=== PATIENT | female | born 1955 | race Native Hawaiian/Other Pacific Islander ===

== ENCOUNTER 2021-09-22 12:00 | Outpatient (RCR) | payer MEDICARE, SELFPAY ==
--- OUTSIDE RECORDS SUMMARY | 2021-08-25 09:04 | XMS_ITS | Continuity of Care Document ---
:1955 Author Support Name Relationship Address Phone LUIS Unavailable Unavailable Unavailable [facility] Team Providers Name Role Phone MIRIAM MUNGUIA Primary Care Physician JUDITH Hoffmann Attending Physician Chief Complaint and Reason for Visit Chief Complaint Dyspnea/Respdistress Reason for Visit [id number] Obstruction of biliary tract Elevated transaminase Right pleural effusion Dyspnea on exertion Diabetes Allergies, Adverse Reactions, Alerts Allergen Type Severity Reaction Last Verified Status Updated Iodinated Allergy Unknown HIVES AND August 18, Yes Active Diagnostic BREATHING 2021 Agents ISSUES Social History Smoking Status Status Start Date End Date Date of Observat ion Tobacco smoking August 25, 2020 7:10am consumption unknown (finding) Additional Data Assigned Sex Female Problems Active Problems Medical Problem Onset Date Status Pancreatic mass Active Pancreatic cancer Jul, 2020 Active Medications Medication Status Dose Units Route Directions Qty Days Start End Ins tructions Date Date Amlodipine Active 10 MG PO Daily Besylate Diphenhydrami Active 50 MG PO Once 2 July bring with you on day of CT scan and take with water after ne Hcl , you check in for test - 1 hour prior to scan 2021 1:58pm Lidocaine-Marily Active 1 CHAZ TOP As Needed 30 Novemb locaine er 2020 10:26am Lorazepam Active 0.5-1 MG PO Every 4 August PRN Hours as , Nausea/vomi ti needed for 2020 ng Nausea/Vomi 12:06pm ting Losartan Active 100 MG PO Daily 30 Potassium Metformin Hcl Active 1000 MG PO Twice A Day 60 Methylprednis Active 32 MG OR As Directed 2 July Take 1 tablet [address] scan, and take another olone 25th, tablet [address] scan. Monitor for high blood 2021 sugar. 1:58pm Metoprolol Active 25 MG PO Twice A Day 31 August Succinate , (Metoprolol 2020 Succinate Er) 8:32am 25 Mg TABCR Ondansetron Active 8 MG PO Every 8 Hcl Hours as needed Oxycodone Hcl Active 5 MG PO Every 6 Hours as needed Potassium Active 20 MEQ PO Daily 30 Novembe Chloride r 2020 10:40am Prochlorperaz Active 10 MG PO Every 4-6 31 August P RN ine Maleate Hours as 16th, Nause a/vomiti needed for 2020 ng Nausea/Vomi 12:06pm ting Simvastatin Active 20 MG PO Bedtime Diphenhydrami Discontin 0 PO Once 1 ua ne Hcl ued ry (Sleep) , (Benadryl) 25 2016 Mg TAB 9:33am Dronabinol Discontin 2.5 MG OR Twice A Day 60 31 October Sept em ued , nolvia 2020 03, 10:24am 2020 10:23a m Dulaglutide Discontin 1.5 MG SC (Trulicity) ued nolvia 1.5 Mg/0.5 Ml , INJ 2020 8:26am Exenatide Discontin 10 MCG SUBQ Twice A Day 1 ua INJECT 1 HOUR (Byetta) 10 ued ry PRIOR TO Mcg INJ , 2016 9:33am Furosemide Discontin 40 MG PO Daily August On old (Lasix) 40 Mg ued , , TAB 2020 2020 8:32am 9:54am Furosemide Discontin 40 MG PO Daily July (Lasix) 40 Mg ued , , TAB 2020 2020 9:17pm 8:32am Insulin Discontin 10 UNIT SUBQ Daily Degludec ued ry (Tresiba , Flextouch) 2016 100 Unit/Ml 9:33am INJ Insulin Discontin 36 UNIT SUBQ Daily September Glargine ued , (Lantus 2020 Solostar) 100 10:02a Unit/1 Ml m SOLN Ketoconazole Discontin 2 % EX June (Topical) ued , (Xolegel) 2 % 2021 GEL 11:15a m Loratadine Discontin 10 MG OR September (Claritin) 10 ued , Mg CAP 2020 10:02a m Losartan Discontin 100 MG PO Daily 31 August Potassium ued , (Cozaar) 100 2020 Mg TAB 8:32am Metformin Hcl Discontin 1000 MG PO Daily With Apr chelo ued Am Meal ry 2016 9:31am Metformin Hcl Discontin 500 MG PO Every Februa ued Evening ry 2016 9:31am Metformin Hcl Discontin 1000 MG PO Twice Daily 60 Fe brua (Glucophage) ued With Meals ry 1,000 Mg TAB 2016 9:31am Multiple Discontin 1 TAB PO August Vitamins W/ ued , Minerals 2020 (Multivitamin 8:32am Adults) 1 Tab TAB Multivitamins Discontin 1 TAB PO Daily September (Multivitamin ued , /Minerals) 2020 TAB 10:02a m Mupirocin Discontin 1 CHAZ TOP Three Times 23 August (Mupirocin ued A Day , Ointment) 2 % 2020 OIN 8:32am Naproxen Discontin 500 MG PO Twice A Day Februa (Naproxen Ec) ued ry 500 Mg TAB 2016 9:29am Nystatin Discontin 1 CHAZ TOP 2-3X/Day 30 September (Nystatin ued , Cream) 30 Gm 2020 CR 10:02a m Triamcinolone Discontin 1 CHAZ TOP Twice A Day 15 Ju ly Acetonide ued 8th, (Cream) 2020 10:02a m Medical Equipment Device Date Implanted Device Details PowerPort [employer] Implantable August 25, 2020 SHAUNNA: [id number] Port Issuing Agency: GS1 Device Id: [id number] Expiration Date: 04-09-29 Lot Number: [id number] Procedures Procedure Date Performed Status CT of chest, abdomen, and August 18, 2021 completed pelvis with intravenous contrast Relevant Diagnostic Tests and/or Laboratory Data Laboratory Results Test Date/Time Result Interpretation Reference Result Comment Performing Range Site White Blood August 22, 6.45 5.00-10.00 [facility] Lab Count 2021 [address] [facility] 11:08am [facility] [id number] Red Blood August 22, 3.19 3.90-5.03 [facility] Lab Count 2021 [address] [facility] 11:08am [facility] [address] Hemoglobin August 22, 9.8 12.0-15.5 [facility] 2021 [address] [facility] 11:08am [facility] [address] Hematocrit August 22, 29.7 34.9-44.5 [facility] Lab 2021 [address] [facility] 11:08am [place] [address] Mean August 22, 93 82-98 [facility] Lab Corpuscular 2021 1999 [facility] Volume 11:08am [place] [address] Mean August 22, 31 27-34 [facility] Lab Corpuscular 2021 1999 [facility] Hemoglobin 11:08am [place] [address] Mean August 22, 33 32-36 [facility] Lab Corpuscular 2021 1999 [facility] Hemoglobin 11:08am [place] [address] Concent Platelet Count August 22, 368 150-450 [facility] 2021 [address] [facility] 11:08am [place] [address] RDW August 22, 14.0 11.5-15.3 [facility] Lab Coefficient of 2021 [address] [facility] Variation 11:08am [place] [address] Neutrophils August 22, 60.3 50.0-70.0 [facility] (%) (Auto) 2021 1999 [facility] 11:08am [place] [address] Lymphocytes August 22, 27.0 25.0-45.0 [facility] (%) (Auto) 2021 [address] [facility] 11:08am [place] [address] Monocytes (%) August 22, 9.3 0.00-11.0 [facility] (Auto) 2021 [address] [facility] 11:08am [place] [address] Eosinophils August 22, 2.6 0.0-7.0 [facility] Lab (%) (Auto) 2021 [address] [facility] 11:08am [place] [address] Basophils (%) August 22, 0.6 0.0-3.0 [facility] (Auto) 2021 [address] [facility] 11:08am [place] [address] Immature August 22, 0.2 [facility] Lab Granulocyte % 2021 1999 [facility] (Auto) 11:08am [place] [address] Neutrophils # August 22, 3.89 1.70-7.00 [facility] Lab (Auto) 2021 [address] [facility] 11:08am [place] [address] Lymphocytes # August 22, 1.74 0.90-2.90 [facility] (Auto) 2021 [address] [facility] 11:08am [facility] [address] Monocytes # August 22, 0.60 0.30-0.90 [facility] Lab (Auto) 2021 [address] [facility] 11:08am [facility] [address] Eosinophils # August 22, 0.17 0.00-0.50 [facility] (Auto) 2021 [address] [facility] 11:08am [facility] [address] Basophils # August 22, 0.04 0.00-0.20 [facility] Lab (Auto) 2021 [address] [facility] 11:08am [place] [address] Immature August 22, 0.01 [facility] Lab Granulocyte # 2021 1999 [facility] (Auto) 11:08am [facility] [address] Random Glucose August 22, 209 60-115 [facility] 2021 [address] [facility] 11:08am [facility] [address] Blood Urea August 22, 9 7-30 [facility] Nitrogen 2021 [address] [facility] 11:08am [facility] [address] Creatinine August 22, 0.5 0.5-1.5 [facility] 2021 [address] [facility] 11:08am [facility] [address] Estimated August 22, 79.4979 [facility] Lab Creatinine 2021 5 [address] [facility] Clearance 11:08am [facility] [address] Sodium Level August 22, 138 135-149 [facility] Lab 2021 [address] [facility] 11:08am [facility] [address] Potassium August 22, 4.1 3.6-5.1 [facility] Level 2021 [address] [facility] 11:08am [facility] [address] Chloride Level August 22, 104 96-114 [facility] 2021 [address] [facility] 11:08am [facility] [address] Carbon Dioxide August 22, 28 20-32 [facility] Level 2021 [address] [facility] 11:08am [facility] [address] Calcium Level August 22, 7.9 8.4-10.6 [facility] 2021 [address] [facility] 11:08am [facility] [address] Total Protein August 22, 5.7 6.0-8.3 The use of [facility] Lab 2021 Eltrombopag, a [address] [facility] 11:08am bone [place] [address] stimulant used to treat thrombocytopenia and aplastic anemia, interferes with this measurement of total protein. A 5% bias has been observed. Albumin August 22, 3.1 3.3-5.0 [facility] Lab 2021 [address] [facility] 11:08am [place] [address] Total August 22, 0.3 0.1-1.5 [facility] Lab Bilirubin 2021 [address] [facility] 11:08am [place] [address] Aspartate August 22, 56 12-35 [facility] Lab Amino Transf [address] (AST/SGOT) 11:08am [place] [address] Alanine August 22, 33 4-35 [facility] Lab Aminotransfera 2021 [address] [facility] se (ALT/SGPT) 11:08am [facility] [place] [address] Alkaline August 22, 160 40-150 [facility] Lab Phosphatase 2021 [address] [facility] 11:08am [facility] [address] CA 19-9 August 22, 522 <=35 [facility] Antigen 2021 INFORMATION: [address] 11:08am Cancer [facility] [address] Antigen-GI (CA 19-9)This test uses Aidee CA 19-9 electrochemilumi nescentimmunoass ay. Results obtained with different test methods orkits cannot be used interchangeably. CA 19-9 value is useful inmonitoring pancreatic, hepatobiliary, gastric, hepatocellular,a nd colorectal cancer. CA 19-9 value, regardless of level,should not be interpreted as absolute evidence of the presenceor absence of malignant disease.Performe d By: [address] [place] [address] [id number] Director: Radha Morley MD Diagnostic Imaging Reports Report Dictated Date/Time Dictated By Status August 18, 2021 9:49am Charles Shaikh MD compl eted [facility] [address] [place] [address] ~DEPARTMENT OF DI AGNOSTIC IMAGING~ Patient: RULA UMANA MR #: [id number] : 1955 Age: 66 Sex: F Ordering MD: JUANIS HOFFMANN APRN /Bed: Loc: CT Report #: [id number] CT/BRENDA ST,ABDOMEN,& PELVIS W CONT Date: 08/18/21 Signed For Patients: As a result of the entury Cures Act, medical imaging exams and procedure reports are release d immediately into your electronic medical record. You may view this repo rt before your referring provider. If you have questions, please contact y our health care provider. Indication: Pancreatic cancer follow-up Technique: Postcontrast CT chest, abdomen and pelv is. 63 cc Isovue 370 intravenous contrast. Please note that [facility] dose modulation, iterative reconstruction, and/or weight -based dosing when appropriate to reduce radiation dose to as low as reas onably achievable. Comparison: 06/01/2021 Findings: In the chest, no significant interval c hange in size, number or morphology of innumerable cavitary masses througho ut both lungs, measuring up to 2.2 cm. Small right pleural effusion also u nchanged. No pneumothorax. Stable right thyroid lobe nodule. No enlarged intrathoracic lymph nodes. No fracture. In the abdomen, there is no intrahepati c mass. Fatty infiltration of the liver with patchy areas of focal fatty sparing. The gallbladder is absent. Stable uncinate process mass measuring 1.3 cm. Stable position of internal biliary stent. Pancreatic duct dilation is similar with atrophy of the pancreatic body and tail. Adrenal gland s normal. Subcentimeter upper retroperitoneal lymph nodes are unchang ed. No hydronephrosis or solid renal mass. Subcentimeter cyst left kidney la terally. Spleen normal. Vascular calcifications. Subcutaneous edema ante rior abdominal wall. No abdominal wall hernia. In the pelvis, the uterus is normal. No adnexal mass. Bladder normal. Increased colonic stool burden. No weston l obstruction. No free air or free fluid. Appendix normal. No pelvic or in guinal adenopathy. No fracture. Impression: Stable metastatic lesions throughout marcio th lungs and unchanged small right pleural effusion. Stable pancreatic uncinate process mass with adjacent subcentimeter retroperitoneal lymph nodes and dilatio n of the pancreatic duct. Stable position of the internal biliary stent. Please note that all CT scans at this [facility] use dose modulation, iterative reconstruction, and/or weight -based dosing when appropriate to reduce radiation dose to as low as reas onably achievable. Dictated by Charles Shaikh MD @ 2 12:28:58 PM (Electronically Signed) Dictated By: CHARLES SHAIKH MD Signed By: CHARLES SHAIKH MD Advance Directives Advance Directive Response Recorded Date/Time Does Pt have Health Care No December 24, 013 8:33am Directive? Has patient completed a No August 25, 2020 7:10am Health Care Directive? Insurance Providers Guarantor Rula Umana Address [address] [place] [address] [address] [place] [id number] Contact Info. Home Phone: CELL Payer Policy Id Coverage Id Subscriber's Subscriber Id Effective E xpiration Name Date Date [employer] [id number] Rula Umana L Solution/ Sr Care + Encounters Encounter Location(s) Arrival/Admit Date Discharge/Depart Date Provider(s) Registered [place] August 24, 2021 Maycol Tavarez [facility] 6:56am Registered [place] August 18, 2021 Betzy Hoffmann [facility] 9:13am A WAREHOUSE ORDER PICKER Plan of Treatment Future Tests Future scheduled test information is unavailable Pending Tests Pending diagnostic test information is unavailable Future Visits Future appointment information is unavailable Referrals to Other Providers Reason for Referral Start Provider Provider Contact Provider Address Referral Date Information Allyson Munguia Work Phone: CASSANDRA WILSON [facility] RYANNE M PA-C Lisa QUEZADA ON [facility] [phone] Future Procedures Future procedure information is unavailable Future Medications Future medication information is unavailable Patient Instructions Blood & Blood Components (DC) Dexamethasone (By injection) Palonosetron (By injection) Muscle Strain (DC) Neutropenic Precautions (GEN) Muscle Spasm (ED)
[2021-09-06 11:09] LABS: Basophils Percent Auto 0.3 % (0.0-3.0); Eosinophils Percent Auto 2.4 % (0.0-7.0); Hematocrit 32.6 % (33.0-51.0); Hemoglobin* 10.7 gm/dL (12.0-16.0); Immature Granulocytes Abs Auto 0.04 K/uL (0.00-0.30); Lymphocytes Percent Auto 19.3 % (20-44); Mean Corpuscular HGB Conc 33 gm/dL (32-36); Mean Corpuscular Hemoglobin 31 pg (26-34); Mean Corpuscular Volume 95 fL (80-100); Monocytes Percent Auto 7.6 % (0.0-11.0); Neutrophils Percent Auto 70.1 % (42.0-72.0); Platelet Count* 390 K/uL (140-440); Red Blood Count 3.45 m/uL (4.00-5.20); White Blood Count* 12.05 K/uL (4.50-11.00)
[2021-09-06 11:24] LABS: Albumin* 3.3 g/dL (3.3-5.0); Chloride* 106 mmol/L (96-114)
[2021-09-06 11:25] LABS: Potassium* 4.4 mmol/L (3.6-5.1); Sodium* 139 mmol/L (135-149)
[2021-09-06 11:27] LABS: Alkaline Phosphatase* 245 U/L (40-150); Aspartate Amino Transferase* 59 U/L (12-35); Bilirubin Total* 0.3 mg/dL (0.1-1.5); Blood Urea Nitrogen* 12 mg/dL (7-30); Carbon Dioxide* 28 mmol/L (20-32); Creatinine* 0.6 mg/dL (0.5-1.5); Est. Creatinine Clearance* 39.75; Estimated Glomerular Filt Rate 98.93; Total Protein* 6.2 g/dL (6.0-8.3)
[2021-09-06 11:28] LABS: Alanine Aminotransferase* 28 U/L (4-35); Glucose* 139 mg/dL (60-115); Slide Review Reflex No
[2021-09-06 11:36] VITALS: BP 175/86; PULSE 76; RESP 16; TEMP 36.8; O2SAT 100
[2021-09-06] MEDS: SODIUM CHLORIDE 0.9 % (FLUSH) 10 ML SYRINGE IVF ×2 (12:18→15:15)
[2021-09-06] MEDS: PALONOSETRON 0.25 MG/5 ML inj IV (12:19)
[2021-09-06] MEDS: dexAMETHasone 20 MG in 0.9 % SODIUM CHLORIDE 100 ml 100 ML 200 MG IVPB (12:31)
[2021-09-06] MEDS: OXALIPLATIN 5 MG/ML INJ 100 MG, TUBING PRIMARY 1 EACH in 5 % DEXTROSE 250 ML 250 ML 135 MG IV (12:57)
[2021-09-08 13:50] VITALS: BP 127/71; PULSE 73; RESP 16; TEMP 36.2; O2SAT 96
[2021-09-08] MEDS: HEPARIN 500 UNIT/5 ML SYRINGE IVF (14:14)
[2021-09-20 10:14] LABS: Basophils Absolute Auto 0.04 K/uL (0.00-0.30); Basophils Percent Auto 0.7 % (0.0-3.0); Eosinophils Absolute Auto 0.19 K/uL (0.00-0.50); Eosinophils Percent Auto 3.3 % (0.0-7.0); Hematocrit 30.7 % (33.0-51.0); Hemoglobin* 10.2 gm/dL (12.0-16.0); Immature Granulocytes Abs Auto 0.03 K/uL (0.00-0.30); Lymphocytes Absolute Auto 1.64 K/uL (0.90-2.90); Lymphocytes Percent Auto 28.2 % (20-44); Mean Corpuscular HGB Conc 33 gm/dL (32-36); Mean Corpuscular Hemoglobin 31 pg (26-34); Mean Corpuscular Volume 93 fL (80-100); Monocytes Percent Auto 9.8 % (0.0-11.0); Neutrophils Absolute Auto 3.34 K/uL (1.7-7.0); Neutrophils Percent Auto 57.5 % (42.0-72.0); Platelet Count* 382 K/uL (140-440); Red Blood Count 3.32 m/uL (4.00-5.20); Slide Review Reflex No; White Blood Count* 5.81 K/uL (4.50-11.00)
[2021-09-20 10:19] LABS: Chloride* 108 mmol/L (96-114)
[2021-09-20 10:20] LABS: Albumin* 3.3 g/dL (3.3-5.0); Potassium* 4.1 mmol/L (3.6-5.1); Sodium* 138 mmol/L (135-149)
[2021-09-20 10:22] LABS: Aspartate Amino Transferase* 32 U/L (12-35); Bilirubin Total* 0.2 mg/dL (0.1-1.5); Carbon Dioxide* 25 mmol/L (20-32); Creatinine* 0.6 mg/dL (0.5-1.5); Est. Creatinine Clearance* 39.75; Estimated Glomerular Filt Rate 99 ml/min; Total Protein* 6.1 g/dL (6.0-8.3)
[2021-09-20 10:23] LABS: Alanine Aminotransferase* 25 U/L (4-35); Alkaline Phosphatase* 184 U/L (40-150); Blood Urea Nitrogen* 13 mg/dL (7-30); Calcium* 8.4 mg/dL (8.4-10.6); Glucose* 180 mg/dL (60-115)
[2021-09-20] MEDS: dexAMETHasone 20 MG in 0.9 % SODIUM CHLORIDE 100 ml 100 ML 204 MG IVPB (11:15)
[2021-09-20] MEDS: PALONOSETRON 0.25 MG/5 ML inj IV (11:17)
[2021-09-20] MEDS: OXALIPLATIN 5 MG/ML INJ 100 MG, TUBING PRIMARY 1 EACH in 5 % DEXTROSE 250 ML 250 ML 135 MG IV ×2 (11:42→11:43)
[2021-09-21 16:55] LABS: Cancer Antigen-GI (CA 19-9) 392 U/mL (<=35)
[2021-09-22] MEDS: PEGFILGRASTIM 6 MG/0.6 ML SYRINGE SUBCUT (12:54)
[2021-09-22] MEDS: HEPARIN 500 UNIT/5 ML SYRINGE IVF (12:55)
[2021-09-22] MEDS: SODIUM CHLORIDE 0.9 % (FLUSH) 10 ML SYRINGE IVF (12:55)
[2021-09-22 12:57] VITALS: BP 110/63; PULSE 66; RESP 16; TEMP 36.5; O2SAT 98
--- NOTE | 2021-09-29 10:31 | ONC.NURNOTE ---
Authorization: User: Marlene Sunil Brumfield Date: 08/16/21 11:21 Type: Eligibility Determination Note... Request for continued authorization of Neulasta J2506. Per [facility] Neulasta 6 mg every 14 days has been approved for 12 visits from 08/25/2021 through 12/22/2021. Authorization #[id number] Amendment 1 - Marlene Sunil Brumfield - 08/16/21 @ 1134 Authorizaiton is approved for 9 visits. User: Marlene Brumfield Date: 05/25/21 10:46 Type: Eligibility Determination Note... Request received from [facility] for prior authorization of Oxaliplatin J9263, Leucovorin Calcium J0640 and Fluorouracil J9190, Aloxi J2469 and Pegfilgrastim J2506. Per Tomer at [facility] no prior authorization is required for Oxaliplatin and Fluorouracil. Prior authorization is required for Leucovorin Calcium. Call Ref #[id number]. Per [employer] [facility] no prior authorization is required for Oxaliplatin, Leucovorin Calcium and Fluorouracil. No PA required for Leucovorin Calcium confirmed with Sherrill at [facility]. Call Ref #[id number] Patient currently has authorizations in place for Aloxi and Pegfilgrastim. Aloxi has 8 doses left through 09/24/2021 and Pegfilgrastim has 4 dose left through 08/24/2021.
== END 2021-10-01 23:59 | disposition home or self-care (01) ==
LOC: CCIC 12:00
PROVIDERS: Clinical Nurse Specialist; PCP Physician Assistant Medical; Visit Provider Internal Medicine Hematology & Oncology
DX: C25.9 Malignant neoplasm of pancreas, unspecified (principal); C78.7 Secondary malignant neoplasm of liver and intrahepatic bile duct
CPT/HCPCS: 36415; 36591; 80053; 85025; 86301; 96368; 96372; 96376; 96413; 96415; 96416; 99211; 99212; 99215; J2506; J0640; J1100; J1642; J2469; J7050; J9190; J9263

== ENCOUNTER 2021-12-29 10:30 | Outpatient (RCR) | payer MEDICARE, SELFPAY ==
[2021-10-04 10:59] VITALS: BP 129/63; PULSE 63; RESP 16; TEMP 36.3; O2SAT 100
[2021-10-04 11:21] LABS: Basophils Percent Auto 0.7 % (0.0-3.0); Eosinophils Percent Auto 2.8 % (0.0-7.0); Hematocrit 29.9 % (33.0-51.0); Hemoglobin* 9.9 gm/dL (12.0-16.0); Immature Granulocytes Abs Auto 0.04 K/uL (0.00-0.30); Mean Corpuscular HGB Conc 33 gm/dL (32-36); Mean Corpuscular Hemoglobin 31 pg (26-34); Mean Corpuscular Volume 92 fL (80-100); Monocytes Percent Auto 8.6 % (0.0-11.0); Neutrophils Percent Auto 69.5 % (42.0-72.0); Platelet Count* 283 K/uL (140-440); RDW Coefficient of Variation % 14.5 % (11.5-15.5); Red Blood Count 3.24 m/uL (4.00-5.20); White Blood Count* 11.24 K/uL (4.50-11.00)
[2021-10-04 11:45] LABS: Slide Review Reflex No
[2021-10-04 11:47] LABS: Albumin* 3.1 g/dL (3.3-5.0); Chloride* 108 mmol/L (96-114); Potassium* 4.4 mmol/L (3.6-5.1); Sodium* 137 mmol/L (135-149)
[2021-10-04 11:49] LABS: Creatinine* 0.6 mg/dL (0.5-1.5); Estimated Glomerular Filt Rate 99 ml/min
[2021-10-04 11:50] LABS: Alanine Aminotransferase* 31 U/L (4-35); Alkaline Phosphatase* 251 U/L (40-150); Aspartate Amino Transferase* 45 U/L (12-35); Blood Urea Nitrogen* 9 mg/dL (7-30); Carbon Dioxide* 25 mmol/L (20-32); Glucose* 207 mg/dL (60-115); Total Protein* 6.1 g/dL (6.0-8.3)
[2021-10-04 11:52] LABS: Bilirubin Total* < 0.1 mg/dL (0.1-1.5)
[2021-10-04] MEDS: dexAMETHasone 20 MG in 0.9 % SODIUM CHLORIDE 100 ml 100 ML 200 MG IVPB (12:31)
[2021-10-04] MEDS: PALONOSETRON 0.25 MG/5 ML inj IV (12:32)
[2021-10-04] MEDS: OXALIPLATIN 5 MG/ML INJ 100 MG, TUBING PRIMARY 1 EACH in 5 % DEXTROSE 250 ML 250 ML 135 MG IV (12:52)
[2021-10-06 14:55] VITALS: BP 112/59; PULSE 67; RESP 16; TEMP 36.4; O2SAT 98
[2021-10-06] MEDS: HEPARIN 500 UNIT/5 ML SYRINGE IVF (16:03)
[2021-10-06] MEDS: SODIUM CHLORIDE 0.9 % (FLUSH) 10 ML SYRINGE IVF (16:03)
--- NOTE | 2021-10-16 14:12 | URNOTE ---
Request for continued authorization of Aloxi J2469. Per [facility] Aloxi has been approved from 10/17/2021 through 04/14/2022. Authorization #[id number]
[2021-10-18 10:15] LABS: Basophils Absolute Auto 0.04 K/uL (0.00-0.30); Basophils Percent Auto 0.4 % (0.0-3.0); Eosinophils Absolute Auto 0.22 K/uL (0.00-0.50); Eosinophils Percent Auto 2.4 % (0.0-7.0); Hematocrit 28.7 % (33.0-51.0); Hemoglobin* 9.6 gm/dL (12.0-16.0); Immature Granulocytes Abs Auto 0.01 K/uL (0.00-0.30); Lymphocytes Percent Auto 17.7 % (20-44); Mean Corpuscular HGB Conc 33 gm/dL (32-36); Mean Corpuscular Hemoglobin 31 pg (26-34); Mean Corpuscular Volume 91 fL (80-100); Monocytes Percent Auto 11.4 % (0.0-11.0); Neutrophils Absolute Auto 6.23 K/uL (1.7-7.0); Platelet Count* 335 K/uL (140-440); RDW Coefficient of Variation % 14.8 % (11.5-15.5); Red Blood Count 3.14 m/uL (4.00-5.20); White Blood Count* 9.16 K/uL (4.50-11.00)
[2021-10-18 10:17] LABS: Slide Review Reflex No
[2021-10-18 10:28] LABS: Albumin* 3.3 g/dL (3.3-5.0); Chloride* 106 mmol/L (96-114); Potassium* 4.1 mmol/L (3.6-5.1); Sodium* 138 mmol/L (135-149)
[2021-10-18 10:30] LABS: Creatinine* 0.8 mg/dL (0.5-1.5); Estimated Glomerular Filt Rate 81 ml/min
[2021-10-18 10:31] LABS: Alanine Aminotransferase* 22 U/L (4-35); Alkaline Phosphatase* 195 U/L (40-150); Aspartate Amino Transferase* 31 U/L (12-35); Bilirubin Total* 0.3 mg/dL (0.1-1.5); Blood Urea Nitrogen* 16 mg/dL (7-30); Calcium* 7.9 mg/dL (8.4-10.6); Carbon Dioxide* 26 mmol/L (20-32); Glucose* 203 mg/dL (60-115); Total Protein* 6.4 g/dL (6.0-8.3)
[2021-10-18] MEDS: SODIUM CHLORIDE 0.9 % (FLUSH) 10 ML SYRINGE IVF (11:22)
[2021-10-18] MEDS: 5 % DEXTROSE 250 ML IV (11:22)
[2021-10-18] MEDS: dexAMETHasone 20 MG in 0.9 % SODIUM CHLORIDE 100 ml 100 ML 200 MG IVPB (11:22)
[2021-10-18] MEDS: PALONOSETRON 0.25 MG/5 ML inj IV (11:22)
[2021-10-18] MEDS: OXALIPLATIN 5 MG/ML INJ 100 MG, TUBING PRIMARY 1 EACH in 5 % DEXTROSE 250 ML 250 ML 135 MG IV (11:58)
[2021-10-20] MEDS: PEGFILGRASTIM 6 MG/0.6 ML SYRINGE SUBCUT (13:46)
[2021-10-20] MEDS: SODIUM CHLORIDE 0.9 % (FLUSH) 10 ML SYRINGE IVF (13:53)
[2021-10-20] MEDS: HEPARIN 500 UNIT/5 ML SYRINGE IVF (13:53)
[2021-10-20 13:57] VITALS: BP 123/69; PULSE 68; RESP 16; TEMP 36.4
[2021-11-01 09:50] VITALS: BP 123/61; PULSE 68; RESP 16; TEMP 36.2; O2SAT 98
[2021-11-01 10:11] LABS: Basophils Percent Auto 0.6 % (0.0-3.0); Eosinophils Percent Auto 2.1 % (0.0-7.0); Hematocrit 30.6 % (33.0-51.0); Hemoglobin* 10.3 gm/dL (12.0-16.0); Immature Granulocytes Abs Auto 0.05 K/uL (0.00-0.30); Lymphocytes Percent Auto 15.4 % (20-44); Mean Corpuscular HGB Conc 34 gm/dL (32-36); Mean Corpuscular Hemoglobin 31 pg (26-34); Mean Corpuscular Volume 92 fL (80-100); Monocytes Percent Auto 6.6 % (0.0-11.0); Neutrophils Percent Auto 74.9 % (42.0-72.0); Platelet Count* 274 K/uL (140-440); RDW Coefficient of Variation % 14.9 % (11.5-15.5); Red Blood Count 3.34 m/uL (4.00-5.20); White Blood Count* 12.58 K/uL (4.50-11.00)
[2021-11-01 10:17] LABS: Slide Review Reflex No
[2021-11-01 10:26] LABS: Chloride* 105 mmol/L (96-114); Potassium* 3.9 mmol/L (3.6-5.1); Sodium* 138 mmol/L (135-149)
[2021-11-01 10:28] LABS: Aspartate Amino Transferase* 44 U/L (12-35); Bilirubin Total* 0.1 mg/dL (0.1-1.5); Carbon Dioxide* 27 mmol/L (20-32); Creatinine* 0.5 mg/dL (0.5-1.5); Estimated Glomerular Filt Rate 103 ml/min
[2021-11-01 10:29] LABS: Alanine Aminotransferase* 30 U/L (4-35); Alkaline Phosphatase* 270 U/L (40-150); Blood Urea Nitrogen* 9 mg/dL (7-30); Calcium* 8.1 mg/dL (8.4-10.6); Glucose* 251 mg/dL (60-115); Total Protein* 5.9 g/dL (6.0-8.3)
[2021-11-01] MEDS: PALONOSETRON 0.25 MG/5 ML inj IV (11:41)
[2021-11-01] MEDS: dexAMETHasone 20 MG in 0.9 % SODIUM CHLORIDE 100 ml 100 ML 204 MG IVPB (11:42)
[2021-11-01] MEDS: 5 % DEXTROSE 250 ML IV (11:42)
[2021-11-01] MEDS: OXALIPLATIN 5 MG/ML INJ 100 MG, TUBING PRIMARY 1 EACH in 5 % DEXTROSE 250 ML 250 ML 135 MG IV (12:30)
[2021-11-03] MEDS: HEPARIN 500 UNIT/5 ML SYRINGE IVF (15:04)
[2021-11-03] MEDS: SODIUM CHLORIDE 0.9 % (FLUSH) 10 ML SYRINGE IVF (15:04)
[2021-11-03 15:05] VITALS: BP 119/51; PULSE 69; RESP 14; TEMP 36.1; O2SAT 100
[2021-11-15 10:38] LABS: Basophils Absolute Auto 0.03 K/uL (0.00-0.30); Basophils Percent Auto 0.4 % (0.0-3.0); Eosinophils Absolute Auto 0.27 K/uL (0.00-0.50); Eosinophils Percent Auto 3.6 % (0.0-7.0); Hematocrit 29.7 % (33.0-51.0); Immature Granulocytes Abs Auto 0.01 K/uL (0.00-0.30); Lymphocytes Absolute Auto 1.87 K/uL (0.90-2.90); Lymphocytes Percent Auto 25.2 % (20-44); Mean Corpuscular HGB Conc 34 gm/dL (32-36); Mean Corpuscular Hemoglobin 31 pg (26-34); Mean Corpuscular Volume 92 fL (80-100); Monocytes Percent Auto 9.2 % (0.0-11.0); Neutrophils Absolute Auto 4.55 K/uL (1.7-7.0); Neutrophils Percent Auto 61.5 % (42.0-72.0); Platelet Count* 333 K/uL (140-440); RDW Coefficient of Variation % 15.2 % (11.5-15.5); Red Blood Count 3.22 m/uL (4.00-5.20); White Blood Count* 7.41 K/uL (4.50-11.00)
[2021-11-15 10:40] LABS: Slide Review Reflex No
[2021-11-15 10:49] VITALS: BP 136/77; PULSE 95; RESP 16; TEMP 36.3; O2SAT 99
[2021-11-15 10:54] LABS: Albumin* 3.4 g/dL (3.3-5.0); Chloride* 105 mmol/L (96-114); Potassium* 3.6 mmol/L (3.6-5.1); Sodium* 139 mmol/L (135-149)
[2021-11-15 10:56] LABS: Creatinine* 0.5 mg/dL (0.5-1.5); Estimated Glomerular Filt Rate 103 ml/min
[2021-11-15 10:57] LABS: Alanine Aminotransferase* 23 U/L (4-35); Alkaline Phosphatase* 203 U/L (40-150); Aspartate Amino Transferase* 33 U/L (12-35); Bilirubin Total* 0.3 mg/dL (0.1-1.5); Blood Urea Nitrogen* 8 mg/dL (7-30); Calcium* 8.1 mg/dL (8.4-10.6); Carbon Dioxide* 25 mmol/L (20-32); Glucose* 170 mg/dL (60-115); Total Protein* 6.5 g/dL (6.0-8.3)
[2021-11-15] MEDS: PALONOSETRON 0.25 MG/5 ML inj IV (11:44)
[2021-11-15] MEDS: 5 % DEXTROSE 250 ML IV (11:44)
[2021-11-15] MEDS: dexAMETHasone 20 MG in 0.9 % SODIUM CHLORIDE 100 ml 100 ML 204 MG IVPB (11:44)
[2021-11-15] MEDS: OXALIPLATIN 5 MG/ML INJ 100 MG, TUBING PRIMARY 1 EACH in 5 % DEXTROSE 250 ML 250 ML 135 MG IV (12:14)
[2021-11-16 20:20] LABS: Cancer Antigen-GI (CA 19-9) 237 U/mL (<=35)
[2021-11-17 14:56] VITALS: BP 127/68; PULSE 73; RESP 16; TEMP 36.7; O2SAT 95
[2021-11-17] MEDS: HEPARIN 500 UNIT/5 ML SYRINGE IVF (15:05)
[2021-11-17] MEDS: SODIUM CHLORIDE 0.9 % (FLUSH) 10 ML SYRINGE IVF (15:05)
[2021-11-17] MEDS: PEGFILGRASTIM 6 MG/0.6 ML SYRINGE SUBCUT (15:07)
[2021-11-29 10:21] LABS: Basophils Percent Auto 0.6 % (0.0-3.0); Eosinophils Percent Auto 2.8 % (0.0-7.0); Hematocrit 33.3 % (33.0-51.0); Hemoglobin* 11.1 gm/dL (12.0-16.0); Immature Granulocytes Abs Auto 0.08 K/uL (0.00-0.30); Lymphocytes Percent Auto 17.7 % (20-44); Mean Corpuscular HGB Conc 33 gm/dL (32-36); Mean Corpuscular Hemoglobin 31 pg (26-34); Mean Corpuscular Volume 94 fL (80-100); Monocytes Percent Auto 8.2 % (0.0-11.0); Neutrophils Percent Auto 70.1 % (42.0-72.0); Platelet Count* 286 K/uL (140-440); Red Blood Count 3.53 m/uL (4.00-5.20); White Blood Count* 13.93 K/uL (4.50-11.00)
[2021-11-29 10:55] LABS: Slide Review Reflex Yes
[2021-11-29 10:56] LABS: Slide Review Acceptable Review (Acceptable)
[2021-11-29 11:25] LABS: Albumin* 3.5 g/dL (3.3-5.0); Chloride* 107 mmol/L (96-114); Sodium* 139 mmol/L (135-149)
[2021-11-29 11:27] LABS: Bilirubin Total* 0.2 mg/dL (0.1-1.5); Carbon Dioxide* 24 mmol/L (20-32); Creatinine* 0.5 mg/dL (0.5-1.5); Estimated Glomerular Filt Rate 103 ml/min
[2021-11-29 11:28] LABS: Alanine Aminotransferase* 26 U/L (4-35); Alkaline Phosphatase* 300 U/L (40-150); Aspartate Amino Transferase* 37 U/L (12-35); Blood Urea Nitrogen* 12 mg/dL (7-30); Calcium* 8.3 mg/dL (8.4-10.6); Glucose* 62 mg/dL (60-115); Total Protein* 6.8 g/dL (6.0-8.3)
[2021-11-29] MEDS: PALONOSETRON 0.25 MG/5 ML inj IV (12:52)
[2021-11-29] MEDS: dexAMETHasone 20 MG in 0.9 % SODIUM CHLORIDE 100 ml 100 ML 204 MG IVPB (12:52)
[2021-11-29] MEDS: SODIUM CHLORIDE 0.9 % (FLUSH) 10 ML SYRINGE IVF (13:32)
[2021-11-29] MEDS: 5 % DEXTROSE 250 ML IV (13:33)
--- NOTE | 2021-11-29 13:34 | ONC.NURNOTE ---
delay in ordering chemo meds due to elevated alk phos. ok to treat and dose lowered by Dr. Tavarez.
--- NOTE | 2021-11-29 13:35 | ONC.NURNOTE ---
started chemo medication as soon as it arrived from pharmacy.
[2021-12-01 15:23] VITALS: BP 131/75; PULSE 73; RESP 16; TEMP 36.2; O2SAT 95
[2021-12-01] MEDS: SODIUM CHLORIDE 0.9 % (FLUSH) 10 ML SYRINGE IVF (15:32)
[2021-12-01] MEDS: HEPARIN 500 UNIT/5 ML SYRINGE IVF (15:32)
[2021-12-13 11:12] VITALS: BP 136/78; PULSE 80; RESP 16; TEMP 36.1; O2SAT 98
[2021-12-13 11:24] LABS: Basophils Percent Auto 0.5 % (0.0-3.0); Eosinophils Percent Auto 2.2 % (0.0-7.0); Immature Granulocytes Abs Auto 0.01 K/uL (0.00-0.30); Lymphocytes Percent Auto 13.4 % (20-44); Mean Corpuscular HGB Conc 33 gm/dL (32-36); Mean Corpuscular Hemoglobin 31 pg (26-34); Mean Corpuscular Volume 94 fL (80-100); Monocytes Percent Auto 7.9 % (0.0-11.0); Neutrophils Percent Auto 75.9 % (42.0-72.0); Platelet Count* 360 K/uL (140-440); RDW Coefficient of Variation % 14.4 % (11.5-15.5); Red Blood Count 3.21 m/uL (4.00-5.20); White Blood Count* 11.11 K/uL (4.50-11.00)
[2021-12-13 11:26] LABS: Slide Review Reflex No
[2021-12-13 11:41] LABS: Albumin* 3.4 g/dL (3.3-5.0); Chloride* 103 mmol/L (96-114); Potassium* 4.5 mmol/L (3.6-5.1); Sodium* 136 mmol/L (135-149)
[2021-12-13 11:44] LABS: Alanine Aminotransferase* 20 U/L (4-35); Alkaline Phosphatase* 159 U/L (40-150); Aspartate Amino Transferase* 33 U/L (12-35); Bilirubin Total* 0.3 mg/dL (0.1-1.5); Blood Urea Nitrogen* 14 mg/dL (7-30); Carbon Dioxide* 26 mmol/L (20-32); Creatinine* 0.8 mg/dL (0.5-1.5); Estimated Glomerular Filt Rate 81 ml/min; Glucose* 221 mg/dL (60-115); Total Protein* 6.3 g/dL (6.0-8.3)
[2021-12-13 11:45] LABS: Calcium* 8.7 mg/dL (8.4-10.6)
[2021-12-13] MEDS: PALONOSETRON 0.25 MG/5 ML inj IV (12:25)
[2021-12-13] MEDS: dexAMETHasone 20 MG in 0.9 % SODIUM CHLORIDE 100 ml 100 ML 204 MG IVPB (12:25)
[2021-12-13] MEDS: SODIUM CHLORIDE 0.9 % (FLUSH) 10 ML SYRINGE IVF (12:25)
[2021-12-13] MEDS: 5 % DEXTROSE 250 ML IV (12:25)
[2021-12-13] MEDS: OXALIPLATIN 5 MG/ML INJ 100 MG, TUBING PRIMARY 1 EACH in 5 % DEXTROSE 250 ML 250 ML 135 MG IV (12:49)
[2021-12-14 20:51] LABS: Cancer Antigen-GI (CA 19-9) 186 U/mL (<=35)
[2021-12-15] MEDS: PEGFILGRASTIM 6 MG/0.6 ML SYRINGE SUBCUT (14:29)
[2021-12-15 14:30] VITALS: BP 146/69; PULSE 64; RESP 16; TEMP 36.4; O2SAT 97
[2021-12-27 10:54] VITALS: BP 151/84; PULSE 62; RESP 16; TEMP 36.2; O2SAT 98
[2021-12-27 11:04] LABS: Basophils Percent Auto 0.5 % (0.0-3.0); Hematocrit 30.7 % (33.0-51.0); Hemoglobin* 10.4 gm/dL (12.0-16.0); Lymphocytes Percent Auto 16.8 % (20-44); Mean Corpuscular HGB Conc 34 gm/dL (32-36); Mean Corpuscular Hemoglobin 32 pg (26-34); Mean Corpuscular Volume 94 fL (80-100); Monocytes Percent Auto 8.1 % (0.0-11.0); Neutrophils Percent Auto 70.8 % (42.0-72.0); Platelet Count* 253 K/uL (140-440); RDW Coefficient of Variation % 14.4 % (11.5-15.5); Red Blood Count 3.28 m/uL (4.00-5.20); White Blood Count* 13.21 K/uL (4.50-11.00)
[2021-12-27 11:05] LABS: Slide Review Reflex No
[2021-12-27 11:16] LABS: Albumin* 3.2 g/dL (3.3-5.0); Chloride* 107 mmol/L (96-114)
[2021-12-27 11:17] LABS: Potassium* 3.6 mmol/L (3.6-5.1); Sodium* 141 mmol/L (135-149)
[2021-12-27 11:19] LABS: Aspartate Amino Transferase* 28 U/L (12-35); Bilirubin Total* 0.2 mg/dL (0.1-1.5); Carbon Dioxide* 25 mmol/L (20-32); Creatinine* 0.6 mg/dL (0.5-1.5); Estimated Glomerular Filt Rate 99 ml/min; Total Protein* 6.3 g/dL (6.0-8.3)
[2021-12-27 11:20] LABS: Alanine Aminotransferase* 22 U/L (4-35); Alkaline Phosphatase* 270 U/L (40-150); Blood Urea Nitrogen* 11 mg/dL (7-30); Calcium* 7.9 mg/dL (8.4-10.6); Glucose* 151 mg/dL (60-115)
[2021-12-27] MEDS: dexAMETHasone 20 MG in 0.9 % SODIUM CHLORIDE 100 ml 100 ML 204 MG IVPB (12:21)
[2021-12-27] MEDS: PALONOSETRON 0.25 MG/5 ML inj IV (12:22)
[2021-12-27] MEDS: OXALIPLATIN 5 MG/ML INJ 100 MG, TUBING PRIMARY 1 EACH in 5 % DEXTROSE 250 ML 250 ML 135 MG IV (12:51)
--- NOTE | 2021-12-28 15:24 | URNOTE ---
Addendum entered by Cierra Angulo RN 12/28/21 15:37: This has been authorized for a total of 9 doses Original Note: Received request for prior auth for Jose ([id number]). Per Liss on behalf of [employer], this has been approved 01/12/2022-05/11/2022. Auth #[id number]
[2021-12-29 14:00] VITALS: BP 181/82; PULSE 97; RESP 16; TEMP 37.1
[2021-12-29 14:35] VITALS: BP 153/75
[2021-12-29] MEDS: HEPARIN 500 UNIT/5 ML SYRINGE IVF (14:39)
[2021-12-29] MEDS: SODIUM CHLORIDE 0.9 % (FLUSH) 10 ML SYRINGE IVF (14:39)
--- NOTE | 2022-01-08 09:54 | ONC.NURNOTE ---
Addendum entered by Stacie Pittman RN 01/22/22 12:23: [facility] has not heard back from patient and family. LMOM for patient to call office with an update. Original Note: Patient's son called and states that patient is at [facility] on oxygen. She was told by hospitalist that will not be discharged until off of oxygen. He was unable to give a good history of what is currently going on. Patient's son was notified that they should give [facility] a phone call once patient is discharged and bring copy of discharge summary and images/report from CT scan that was done there.
--- NOTE | 2022-01-11 09:35 | PC.NURSE ---
Aloxi Approva (10/2021) Received a call from Mitra from [employer] on behalf of [employer] to provide an approval number for Aloxi - one time dose of 125 mcg. This approval is good from 10/04/21-10/15/21. Approval number: [id number] Tigist Lang RN
== END 2022-04-02 23:59 | disposition home or self-care (01) ==
LOC: CCIC 10:30
PROVIDERS: Clinical Nurse Specialist; PCP Physician Assistant Medical; Referring Provider Physician Assistant Medical; Visit Provider Internal Medicine Hematology & Oncology
DX: C25.9 Malignant neoplasm of pancreas, unspecified (principal); C78.7 Secondary malignant neoplasm of liver and intrahepatic bile duct
CPT/HCPCS: 36415; 36591; 80053; 85025; 86301; 96368; 96372; 96376; 96413; 96415; 96416; 99211; 99212; 99214; 99215; J2506; J0640; J1100; J1642; J2469; J7050; J9190; J9263